=== PATIENT | female | born 1965 | race Caucasian/White ===

== ENCOUNTER 2019-09-20 08:20 | Outpatient (REF) | payer OTHER, SELFPAY ==
[2019-09-20 09:03] LABS: Basophils # 0.1 10^3/uL (0.0-0.1); Eosinophils # 0.3 10^3/uL (0.0-0.8); Eosinophils % 4.6 %; Hematocrit 41.8 % (37.0-47.0); Hemoglobin 13.9 g/dL (11.5-15.3); Lymphocytes # 1.3 10^3/uL (0.8-4.8); Lymphocytes % 20.4 %; Mean Corpuscular HGB Conc 33.3 g/dL (30.0-36.0); Mean Corpuscular Hemoglobin 28.5 pg (28.0-34.0); Mean Corpuscular Volume 85.7 fL (81-99); Mean Platelet Volume 9.8 fL (7.4-10.4); Monocytes # 0.4 10^3/uL (0.2-0.9); Monocytes % 6.7 %; Neutrophils # 4.1 10^3/uL (1.8-7.7); Neutrophils % 66.8 %; Nucleated Red Blood Cells % 0 %; Platelet Count 380 10^3/cmm (130-400); Red Blood Count 4.88 10^6/uL (4.1-5.3); Red Cell Distribution Width 12.5 % (12.1-15.1); White Blood Count 6.1 10^3/uL (4.0-10.0)
[2019-09-20 14:02] LABS: Alanine Aminotransferase 25 U/L (0-33); Albumin Level 4.3 g/dL (3.5-5.2); Alkaline Phosphatase 79 IU/L (35-105); Anion Gap 21.1 (5-19); Aspartate Amino Transferase 23 U/L (0-32); Blood Urea Nitrogen 11 mg/dL (6-20); Calcium 10.1 mg/dL (8.5-10.5); Carbon Dioxide 21 mmol/L (22-29); Chloride 95 mmol/L (98-107); Chol HDL Ratio 3.72 mg/dL (0.0-4.40); Cholesterol 197 mg/dL (0-200); Globulin 3.5 g/dL (1.3-4.6); Glomerular Filtration Rate 87.5 mL/min (90-130); Glucose 91 mg/dL (65-115); HDL Cholesterol 53 mg/dL (60-100); LDL Cholesterol Calculated 96 mg/dL (50-129); LDL HDL Ratio 1.81 RATIO (0.00-3.22); Potassium 4.1 mmol/L (3.5-5.1); Sodium 133 mmol/L (136-145); Total Bilirubin 0.6 mg/dL (0.15-1.2); Total Protein 7.8 g/dL (6.6-8.7); Triglycerides 242 mg/dL (0-150)
[2019-09-21 03:17] LABS: Estmated Average Glucose 117; Hemoglobin A1C 5.7 % (4.0-6.0)
== END 2019-09-20 08:21 | disposition home or self-care (01) ==
LOC: LAB 08:20
PROVIDERS: Family Provider Family Medicine; PCP Family Medicine; Visit Provider Dermatology
DX: Z01.89 Encounter for other specified special examinations (principal)
CPT/HCPCS: 80053; 80061; 83036; 85025

== ENCOUNTER 2020-01-17 06:16 | Day surgery (SDC) | payer OTHER, SELFPAY ==
[2020-01-16 12:43] VITALS: BMI 29.2
[2020-01-17 06:32] VITALS: BP 148/83; PULSE 80; RESP 18; TEMP 36.8; O2SAT 100
[2020-01-17] MEDS: sodium chloride 0.9% 1,000 ML 30 ML IV (06:39)
--- NOTE | 2020-01-17 06:41 | ANES.PREANE2 ---
Pre-Anesthetic Assessment Pre-Anesthetic Assessment: Height/Weight: Height 1.63 m Weight 77.111 kg Temp Pulse Resp BP Pulse Ox 98.2 F 80 18 148/83 100 01/17/20 06:32 01/17/20 06:32 01/17/20 06:32 01/17/20 06:32 01/17/20 06:32 Proposed Procedure: Operation Date: 01/17/20 07:00 Proposed Procedures p Colonoscopy(Not Applicable) - Yong Arora MD Last intake: Intake Last Liquid Date 01/16/20 Last Liquid Time 21:30 Last Solid Date 01/15/20 Exam: Pre-Anes Outpt Exam: alert Airway: Submandibular: WNL Cervical ROM: WNL MP: 2 Dentition: Chipped Pulmonary: Pulmonary: None reported CV/HEM: CV/HEM: HTN (took meds this morning) : : None reported Hepatic: Hepatic: None reported Metabolic: Metabolic: None reported Musc/skel: Musc/skel: Fibromyalgia Neuropsych: Neuropsych: Anxiety Anesthetic Plan: ASA status: 2 Anesthesia: MAC Meds/Allergies Current Medications: Current Medications Generic Name Dose Route Start Last Admin Trade Name Freq PRN Reason Stop Dose Admin Sodium Chloride 1,000 mls @ 30 ml s/hr 01/17/20 06:00 01/17/20 06:39 Sodium Chloride 0.9% IV 01/18/20 05:59 30 mls/hr .Q24H KIYA Administration PFSH Anesthesia PFSH: Social History (Updated 01/16/20 @ 12:35 by Yenifer Hugo) Smoking and tobacco status: never smoked Data Anesthesia Cardiac Studies: No Data to Display
[2020-01-17 07:28] VITALS: BP 108/60; PULSE 63; RESP 16; TEMP 36.8; O2SAT 100
[2020-01-17 07:46] VITALS: BP 121/75; PULSE 64; RESP 16; TEMP 36.7; O2SAT 99
--- NOTE | 2020-01-17 08:07 | P.HP_ITS ---
Providers/Chief Complaint Primary Care Provider: Yong Arora MD Chief Complaint: Presenting for a colonoscopy due to a father with a history of colon cancer History of Present Illness Roxanna Villagran is a 54 year old female presenting for a colonoscopy due to a family history of colon cancer. Her father had colon cancer. Her previous colonoscopy was within normal limits. Review of Systems General: Reports: 10 or more systems reviewed and unremarkable except in HPI and below Const: Denies: fever(s) Card: Denies: chest pain or irregular heart rhythm Resp: Denies: dyspnea Medications/Allergies Home Medications Medication Instructions Recorded Confirmed Last Taken Type hydrochlorothiazide 25 mg PO DAILY 01/16/20 01/17/20 01/17/20 History lisinopril 5 mg PO DAILY 01/16/20 01/17/20 01/17/20 History metoprolol tartrate 25 mg PO BID 01/16/20 01/17/20 01/17/20 History potassium chloride 10 meq PO DAILY PRN 01/16/20 01/17/20 01/15/20 History tramadol 50 mg PO TID PRN 01/16/20 01/17/20 01/16/20 History Allergies Allergy/AdvReac Type Severity Reaction Status Date / Time Penicillins Allergy ALGY-Rash Verified 01/16/20 12:39 shrimp Allergy ALGY-Rash Verified 01/16/20 12:39 Sulfa (Sulfonamide Allergy ALGY-Rash Verified 01/16/20 12:39 Antibiotics) PFSH Acute PFSH: Social History Smoking and tobacco status: never smoked Vitals/I&O/Wt Last Vital Signs Temp 98.0 F 01/17/20 07:46 Pulse 64 01/17/20 07:46 Resp 16 01/17/20 07:46 BP 121/75 01/17/20 07:46 Pulse Ox 99 01/17/20 07:46 Weight last 48 hrs Weight 170 lb Weight 170 lb Physical Exam Const: COMMON NORMALS: no acute distress and patient oriented x3 GENERAL APPEARANCE: cooperative, comfortable and well developed HENMT: COMMON NORMALS: normocephalic and moist oral mucous membranes HEAD & SCALP: normocephalic Chest: COMMONS NORMALS: normal inspection of the chest Resp: COMMON NORMALS: normal respiratory effort and clear to auscultation bilaterally AUSCULTATION: clear to auscultation bilaterally Cardio: COMMON NORMALS: regular rate, regular rhythm, No gallops present (Cardio), No murmurs present (Cardio) and No rub (Cardio) RATE: regular rate RHYTHM: regular rhythm Extremity: COMMON NORMALS: normal to inspection Neuro: COMMON NORMALS: patient oriented x3 and no focal motor deficits Skin: COMMON NORMALS: no rashes or lesions noted GENERAL SKIN EXAM: no rashes or lesions noted A&P Assessment and plan (1) Family history of colon cancer in father: Proceed with colonoscopy due to first-degree relative with colon cancer. We discussed the risks of bleeding, perforation, and sedation. The patient had no further questions and wishes to proceed. Status: Acute Attestations Medical Necessity Statement*: Outpatient procedure. Coding Level of Care Code Acute [employer] Inspector for Tyler Berg Diagnoses Family history of colon cancer in father Z80.0
== END 2020-01-17 08:20 | disposition home or self-care (01) ==
PROVIDERS: PCP Family Medicine; Visit Provider Family Medicine
PROC: 0DJD8ZZ Inspection of Lower Intestinal Tract, Via Natural or Artificial Opening Endoscopic (ICD-10-PCS; CPT 45378; principal; 2020-01-17 07:00)
DX: Z12.11 Encounter for screening for malignant neoplasm of colon (principal); Z80.0 Family history of malignant neoplasm of digestive organs; K63.89 Other specified diseases of intestine; I10 Essential (primary) hypertension; M79.7 Fibromyalgia; F41.9 Anxiety disorder, unspecified
CPT/HCPCS: 12345; 45378; J2704; J7030

== ENCOUNTER 2021-06-29 09:01 | Outpatient (CLI) | payer OTHER, SELFPAY ==
--- NOTE | 2021-06-29 09:04 | MM_ITS ---
WS: [id number] Exam: [id number] Date/Time of Exam: 06/29/2021 9:09 AM Reason For Exam: SCREENING VIEWS: MLO and CC views both breasts. Comparison made with prior exam of 09/09/2013, 09/30/2016 and 08/17/2018. Findings: There was no sign of mass, architectural distortion or suspicious calcification in either breast. Fa tty MM/[id number] Impression: BI-RADS: 1-Negative FOLLOW-UP: 1 Year Follow-up This mammogram was also analyzed by the Computer Aided Detection System R2 Imag e Asphalt Mixing Machine Operator.
== END 2021-06-29 09:02 | disposition home or self-care (01) ==
LOC: RADSHAW 09:03
PROVIDERS: PCP Family Medicine; Visit Provider Family Medicine
DX: Z12.31 Encounter for screening mammogram for malignant neoplasm of breast (principal)
CPT/HCPCS: 77067

== ENCOUNTER 2022-08-26 08:10 | Outpatient (CLI) | payer OTHER, SELFPAY ==
--- NOTE | 2022-08-26 08:40 | MM_ITS ---
WS: [id number] SCREENING DIGITAL TOMOSYNTHESIS MAMMOGRAM WITH CAD HISTORY: SCREENING COMPARISON: 06/29/2021, 08/17/2018 Bilateral CC and MLO with tomosynthesis views submitted. Synthetic mammography reviewed. Computer aid ed detection analyzed. Breast composition: There are scattered areas of fibroglandular density. No suspicious masses, microc alcifications or architectural distortion. MM/[place] [id number] IMPRESSION: BI-RADS: 1-Negative FOLLOW UP: 1 Year Follow-up
== END 2022-08-26 08:11 | disposition home or self-care (01) ==
LOC: RAD 08:11
PROVIDERS: PCP Family Medicine; Visit Provider Family Medicine
DX: Z12.31 Encounter for screening mammogram for malignant neoplasm of breast (principal)
CPT/HCPCS: 77063; 77067

== ENCOUNTER 2022-10-07 15:26 | Outpatient (CLI) | payer OTHER, SELFPAY ==
--- NOTE | 2022-10-07 16:22 | XRR_ITS ---
PROCEDURE INFORMATION: Exam: XR Lumbosacral Spine Exam date and time: 10/07/2022 4:22 PM Age: 57 years old Clinical indication: Low back pain; Prior surgery; Surgery type: Gb, hyster, tubal; Patient HX: Moving something heavy and heard a pop 4 days ago TECHNIQUE: Imaging protocol: Radiologic exam of the lumbosacral spine. Views: 2 or 3 views. COMPARISON: No relevant prior studies available. FINDINGS: Bones/joints: Mild to moderate L5/S1 disc space narrowing. Minimal multilevel productive degenerative endplate changes throughout the spine. Soft tissues: Unremarkable. Intraperitoneal space: Right upper quadrant surgical clips. XR/XR lumbar spine 2-3V* [id number] IMPRESSION: 1. Mild to moderate L5/S1 disc space narrowing. 2. Minimal multilevel productive degenerative endplate changes throughout the spine. 3. Right upper quadrant surgical clips.
--- NOTE | 2022-10-07 16:22 | XRR_ITS ---
PROCEDURE INFORMATION: Exam: XR Bilateral Sacroiliac Joints Exam date and time: 10/07/2022 4:22 PM Age: 57 years old Clinical indication: Pain in coccyx area; Prior surgery; Surgery type: Gb, hyster, tubal; Patient HX: Moving heavy object and back popped 4 days ago; Additional info: Back pain TECHNIQUE: Imaging protocol: XR bilateral XR of the sacroiliac joints. Views: 3 or more views. COMPARISON: No relevant prior studies available. FINDINGS: Bones/joints: Normal. No acute fracture. Soft tissues: Normal. Other findings: Vascular coils seen over the pelvis. XR/XR sacroiliac jts m 3V [id number] IMPRESSION: Negative for acute bony abnormality.
== END 2022-10-07 15:27 | disposition home or self-care (01) ==
PROVIDERS: PCP Family Medicine; Visit Provider Nurse Practitioner Family
DX: M54.50 Low back pain, unspecified (principal); M48.07 Spinal stenosis, lumbosacral region
CPT/HCPCS: 72100; 72202

== ENCOUNTER → 2023-01-22 10:47 | Outpatient (BNVA) | payer OTHER, SELFPAY | PROVIDERS: PCP Family Medicine; Visit Provider Nurse Practitioner Family | DX: J02.9 Acute pharyngitis, unspecified (principal); B37.0 Candidal stomatitis | CPT/HCPCS: 87880 ==

== ENCOUNTER 2023-08-28 11:47 | Outpatient (CLI) | payer OTHER, SELFPAY ==
--- NOTE | 2023-08-28 11:54 | MM_ITS ---
WS: [id number] BILATERAL 3D TOMOSYNTHESIS DIGITAL SCREENING MAMMOGRAPHY WITH CAD CLINICAL INFORMATION: SCREENING HISTORY: Screening mammogram. No current complaints. COMPARISON: 08/26/2022 TECHNIQUE: Bilateral CC and MLO views. FINDINGS: Scattered fibroglandular densities bilaterally. No suspicious focal mass, asymmetry, calcifications, or architectural distortion. No evidence of malignancy. IMPRESSION: MM/[place] [id number] BI-RADS: 1-Negative FOLLOW UP: 1 Year Follow-up Recommend return to annual screening mammography.
== END 2023-08-28 11:48 | disposition home or self-care (01) ==
LOC: RAD 11:47
PROVIDERS: PCP Family Medicine; Visit Provider Family Medicine
DX: Z12.31 Encounter for screening mammogram for malignant neoplasm of breast (principal)
CPT/HCPCS: 77063; 77067

== ENCOUNTER → 2024-02-11 11:23 | Outpatient (BNVA) | payer OTHER, SELFPAY | PROVIDERS: PCP Family Medicine; Visit Provider Family Medicine | DX: J02.9 Acute pharyngitis, unspecified (principal) | CPT/HCPCS: 87071; 87880 ==

== ENCOUNTER 2024-09-10 08:02 | Outpatient (CLI) | payer OTHER, SELFPAY ==
--- NOTE | 2024-09-10 08:04 | MM_ITS ---
WS: [id number] VIEWS: MLO and CC views both breasts. 3D digital tomosynthesis is also included in this exam. Comparison made with prior exam of 07/19/2010, 07/28/2011, 09/07/2012, 09/09/2013, 09/30/2016, 08/17/2018, 08/28/2023, 06/29/2021, 08/26/2022,. Findings: There are scattered areas of fibroglandular density. No sign of suspicious mass, tumor calcification or architectural distortion. Stable appearing small n odules in both breasts. MM/MM scr BI tomosynthesis [id number] Impression: BI-RADS: 2 - Benign. FOLLOW-UP: 1 Year Follow-up This mammogram was also analyzed by the Computer Aided Detection System R2 Imag e Cart[employer] Filling Machine Operator.
== END 2024-09-10 08:03 | disposition home or self-care (01) ==
LOC: RAD 08:04
PROVIDERS: PCP Family Medicine; Visit Provider Family Medicine
DX: Z12.31 Encounter for screening mammogram for malignant neoplasm of breast (principal); R92.323 Mammographic fibroglandular density, bilateral breasts; N63.20 Unspecified lump in the left breast, unspecified quadrant; N63.10 Unspecified lump in the right breast, unspecified quadrant
CPT/HCPCS: 77063; 77067

== ENCOUNTER 2025-06-04 15:27 | Outpatient (CLI) | payer OTHER, SELFPAY ==
--- NOTE | 2025-06-04 15:41 | XR_ITS ---
WS: [id number] SCREENING DEXA SCAN [place] [employer] CLINICAL INFORMATION: ENCOUNTER SCREENING FOR OSTEOPOROSIS COMPARISON: None. FINDINGS: The L1-L4 bone mineral density measures 1.232 g/cm2. This corresponds to a T score score of 0.4 and Z score of 1.8. Left femoral neck bone mineral density measures 0.842 g/cm2. This corresponds to a T score of -1.3 and Z score of -0.3. Right femoral neck bone mineral density measures 0.857 g/cm2. This corresponds to a T score -1.2of and Z score of -0.2. Mean femoral neck bone mineral density measures 0.849 g/cm2. This corresponds to a T score of -1.3 and Z score of -0.2. XR/XR DEXA axial skeleton* [id number] IMPRESSION: Normal bone mineralization lumbar spine. Osteopenia femoral necks. Patient's FRAX calculated 10 year probability for major osteoporotic fracture i s 7.9% and osteoporotic hip fracture is 0.8%.
== END 2025-06-04 15:28 | disposition home or self-care (01) ==
LOC: RAD 15:31
PROVIDERS: PCP Family Medicine; Visit Provider Nurse Practitioner Family
DX: Z13.820 Encounter for screening for osteoporosis (principal); M85.89 Other specified disorders of bone density and structure, multiple sites
CPT/HCPCS: 77080